=== PATIENT | male | born 1965 | race Caucasian/White ===

== ENCOUNTER 2016-09-20 14:36 | Emergency (ER) | payer SELFPAY ==
[~2016-09-20] VITALS: Ht 175.3 cm; Wt 89.9 kg
[2016-09-20 14:44] VITALS: BP 139/78; PULSE 82; RESP 16; TEMP 99; O2SAT 97
[2016-09-20] MEDS ORDERED: BACT800T5 PO (15:55)
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
== END 2016-09-20 16:35 | disposition home or self-care (01) ==
LOC: PHEFT 14:36
DX: L02.415 Cutaneous abscess of right lower limb (principal); F17.210 Nicotine dependence, cigarettes, uncomplicated
CPT/HCPCS: 10061; 87070; 87205